=== PATIENT | female | born 1985 | race Caucasian/White ===

== ENCOUNTER → 2019-04-13 | Outpatient (CLI) | payer BC | END | disposition home or self-care (01) | LOC: LAB 12:30 | PROVIDERS: ATTEND Internal Medicine | DX: Z34.80 Encounter for supervision of other normal pregnancy, unspecified trimester (principal); Z3A.00 Weeks of gestation of pregnancy not specified | CPT/HCPCS: 36415; 81025; 84702 ==

== ENCOUNTER → 2019-06-23 | Outpatient (CLI) | payer BC ==
[2019-06-23 10:25] LABS: Basophils # (auto) 0.1 uL; Basophils % (auto) 0.9 % (0.0-2.0); Eosinophils # (auto) 0.6 uL; Hematocrit 39.7 % (36.0-46.0); Hemoglobin 13.4 g/dL (12.2-16.2); Lymphocytes # (auto) 1.6 uL; Lymphocytes % (auto) 20.7 % (10.0-50.0); Mean Corpuscular Hemoglobin 28.8 pg (28.0-32.0); Mean Corpuscular Hgb Conc. 33.7 g/dL (32.0-36.0); Mean Corpuscular Volume 85.4 fL (80.0-100.0); Monocytes # (auto) 0.6 uL; Monocytes % (auto) 7.6 % (0.0-12.0); Neutrophils # (auto) 4.8 uL; Neutrophils % (auto) 62.8 % (37.0-80.0); Platelet Count (auto) 200 10^3/uL (140-450); Red Blood Cells 4.65 10^6/uL (4.0-5.20); Red Cell Distribution Width 14.4 % (11.8-14.3); White Blood Cell 7.7 10^3/uL (4.4-10.8)
[2019-06-23 11:19] LABS: Alcohol, Urine < 3.0 mg/dL (0-5); Amphetamine Screen, Urine NEGATIVE (NEGATIVE); Barbiturate Scree,Urine NEGATIVE (NEGATIVE); Benzodiazephine Screen, Urine NEGATIVE (NEGATIVE); Cannabinoid Screen, Urine NEGATIVE (NEGATIVE); Cocaine Screen, Urine NEGATIVE (NEGATIVE); Opiate Scree,Urine NEGATIVE (NEGATIVE); Phencyclidine Screen, Urine NEGATIVE (NEGATIVE)
[2019-06-24 07:06] LABS: RPR Non Reactive (Non Reactive)
== END | disposition home or self-care (01) ==
LOC: LAB 09:09
PROVIDERS: ATTEND Obstetrics & Gynecology
DX: Z34.82 Encounter for supervision of other normal pregnancy, second trimester (principal); Z3A.19 19 weeks gestation of pregnancy
CPT/HCPCS: 36415; 80307; 84112; 85025; 86592; 86703; 86762; 86850; 86900; 86901; 87086; 87340

== ENCOUNTER → 2019-09-24 | Outpatient (CLI) | payer BC ==
[2019-09-24 07:36] LABS: Basophils # (auto) 0.1 uL; Basophils % (auto) 0.7 % (0.0-2.0); Eosinophils # (auto) 0.2 uL; Eosinophils % (auto) 3.2 % (0.0-7.0); Hematocrit 36.3 % (36.0-46.0); Hemoglobin 12.2 g/dL (12.2-16.2); Lymphocytes # (auto) 1.8 uL; Lymphocytes % (auto) 23.3 % (10.0-50.0); Mean Corpuscular Hemoglobin 28.7 pg (28.0-32.0); Mean Corpuscular Hgb Conc. 33.5 g/dL (32.0-36.0); Mean Corpuscular Volume 85.8 fL (80.0-100.0); Monocytes # (auto) 0.8 uL; Monocytes % (auto) 9.7 % (0.0-12.0); Neutrophils # (auto) 4.9 uL; Neutrophils % (auto) 63.1 % (37.0-80.0); Nucleated Red Blood Cells % 0.1 %; Platelet Count (auto) 181 10^3/uL (140-450); Red Blood Cells 4.23 10^6/uL (4.0-5.20); Red Cell Distribution Width 13.2 % (11.8-14.3); White Blood Cell 7.8 10^3/uL (4.4-10.8)
== END | disposition home or self-care (01) ==
LOC: LAB 07:21
PROVIDERS: ATTEND Obstetrics & Gynecology
DX: O99.810 Abnormal glucose complicating pregnancy (principal); Z3A.01 Less than 8 weeks gestation of pregnancy
CPT/HCPCS: 36415; 82951; 85025

== ENCOUNTER → 2019-10-13 | Outpatient (CLI) | payer BC ==
[2019-10-13 10:02] LABS: Basophils # (auto) 0 uL; Basophils % (auto) 0.6 % (0.0-2.0); Eosinophils # (auto) 0.1 uL; Eosinophils % (auto) 1.9 % (0.0-7.0); Hemoglobin 12.4 g/dL (12.2-16.2); Lymphocytes # (auto) 1.4 uL; Lymphocytes % (auto) 19.1 % (10.0-50.0); Mean Corpuscular Hemoglobin 29.6 pg (28.0-32.0); Mean Corpuscular Hgb Conc. 34.5 g/dL (32.0-36.0); Mean Corpuscular Volume 85.6 fL (80.0-100.0); Monocytes # (auto) 0.8 uL; Neutrophils # (auto) 5.2 uL; Neutrophils % (auto) 68.4 % (37.0-80.0); Nucleated Red Blood Cells % 0.1 %; Platelet Count (auto) 165 10^3/uL (140-450); Red Blood Cells 4.21 10^6/uL (4.0-5.20); Red Cell Distribution Width 13.2 % (11.8-14.3); White Blood Cell 7.6 10^3/uL (4.4-10.8)
[2019-10-14 09:06] LABS: RPR Non Reactive (Non Reactive)
== END | disposition home or self-care (01) ==
LOC: LAB 09:31
PROVIDERS: ATTEND Obstetrics & Gynecology
DX: Z34.83 Encounter for supervision of other normal pregnancy, third trimester (principal); Z3A.35 35 weeks gestation of pregnancy
CPT/HCPCS: 36415; 84112; 85025; 86592

== ENCOUNTER 2019-11-10 04:05 | Inpatient (IN) | payer BC ==
[2019-11-10] VITALS (14 sets, daily range): BP systolic 102–128; BP diastolic 52–81
[~2019-11-10] VITALS: Ht 167.6 cm; Wt 76.7 kg
[2019-11-10 05:26] LABS: Basophils # (auto) 0.1 10 ^3/uL (0-0.2); Basophils % (auto) 1.1 % (0.0-2.0); Eosinophils # (auto) 0.1 10 ^3/uL (0-0.8); Eosinophils % (auto) 1.6 % (0.0-7.0); Hematocrit 35.8 % (36.0-46.0); Hemoglobin 12.2 g/dL (12.2-16.2); Lymphocytes % (auto) 26.5 % (10.0-50.0); Mean Corpuscular Hemoglobin 28.7 pg (28.0-32.0); Mean Corpuscular Hgb Conc. 33.9 g/dL (32.0-36.0); Mean Corpuscular Volume 84.4 fL (80.0-100.0); Monocytes # (auto) 0.6 10 ^3/uL (0-1.3); Monocytes % (auto) 8.5 % (0.0-12.0); Neutrophils # (auto) 4.7 10 ^3/uL (1.6-8.6); Neutrophils % (auto) 62.3 % (37.0-80.0); Platelet Count (auto) 178 10^3/uL (140-450); Red Blood Cells 4.24 10^6/uL (4.0-5.20); Red Cell Distribution Width 13.2 % (11.8-14.3); White Blood Cell 7.5 10^3/uL (4.4-10.8)
[2019-11-10] MEDS: LACTATED RINGER'S 1,000 ML IV SCH ×4 (05:35→23:30)
[2019-11-10 05:41] LABS: INR 0.92 (0.9-1.15); Partial Thromboplastin Time 26.6 sec (23.64-32.05)
[2019-11-10 05:46] LABS: Albumin 2.7 g/dL (3.4-5.0); Calcium 8.6 mg/dL (8.5-10.1); Potassium 3.5 mmol/L (3.5-5.1)
[2019-11-10 05:46] LABS: Urine Bacteria NONE SEEN /hpf (None Seen); Urine Blood Negative /uL (Negative); Urine Mucus FEW (None Seen); Urine Specific Gravity 1.019 (1.001-1.035); Urine WBC 2 /hpf (0 - 5)
[2019-11-10] MEDS ORDERED: PREN-153 OR (05:47)
[2019-11-10 05:50] LABS: BUN/Creatinine Ratio 15.1; Bilirubin, Total 0.3 mg/dL (0.2-1.0); Total Protein 6.9 g/dL (6.4-8.2)
[2019-11-10] MEDS ORDERED: fentaNYL CITRATE 100 MCG/2 ML VL ONE (06:02)
[2019-11-10] MEDS ORDERED: oxyTOCIN 10 UNIT/ML 10ML VIAL ONE (06:02)
[2019-11-10] MEDS ORDERED: MORPHINE SULF(PF) 0.5MG/ML 10ML VIAL ONE (06:02)
[2019-11-10] MEDS ORDERED: ceFAZolin 1GM VL ONE (06:02)
[2019-11-10] MEDS ORDERED: BUPIVACAINE/DEXTROSE MPF 0.75% 2 ML AMP IT ONE (06:02)
[2019-11-10] MEDS ORDERED: ONDANSETRON HCL 4 MG/2 ML VIAL ONE (06:02)
[2019-11-10] MEDS ORDERED: SODIUM CHLORIDE LOCK 10 ML ONE (06:02)
[2019-11-10] MEDS ORDERED: MIDAZOLAM HCL 1MG/1ML-2 ML VIAL ONE (06:02)
[2019-11-10] MEDS ORDERED: EPINEPHrine HCL 1 MG/1 ML AMP ONE (06:03)
[2019-11-10] MEDS ORDERED: TETRACAINE 1% INJ 2 ML VIAL IJ ONE (06:48)
[2019-11-10] MEDS ORDERED: SUCCINYLCHOLINE CHLORIDE 20 MG/ML 10ML VIAL IV ONE (06:48)
[2019-11-10] MEDS ORDERED: LACT. RINGERS/OXYTOCIN 20UNITS 1,000 ML IV SCH (06:54)
[2019-11-10] MEDS ORDERED: MORPHINE SULFATE 4 MG/ML SYR/VIAL IV PRN (07:00)
[2019-11-10] MEDS ORDERED: ONDANSETRON HCL 4 MG/2 ML VIAL IV PRN (07:00)
[2019-11-10] MEDS ORDERED: ceFAZolin 1GM/50ML 50 ML IV SCH (07:00)
--- NOTE | 2019-11-10 08:40 | NUR ---
Call received from [facility]erson in PACU to give report: Pt stable and ready for transport back to [facility]; 425mL output from palmer, incision clean, dry intact; scant lochia; uterus firm 1 below umbilicus; pt received 30 of pit with bag still running; O2 sat 100% RA; 14R, 128/52BP; pt received duramorph; ancef given at 0725.
--- NOTE | 2019-11-10 08:45 | NUR ---
Post Op for [facility]: Received patient from PACU via bed to room 7B. Patient A/A/Ox4, abdominal binder and bilateral SCD's are in place, IV fluids placed on pump and infusing per order, incisional site dressing clean/dry/intact and Camp Catheter to gravity draining clear yellow urine. Incentive Spirometer at bedside and instruction on proper use with return demonstration done by patient.
--- NOTE | 2019-11-10 09:00 | NUR ---
Teaching: Reviewed information in [facility] [employer] booklet with patient. Discussed benefits of and risks associated with not . Discussed different positions, proper latch, feeding cues, and baby-led . Provided information of medication side effects related to . All questions and concerns addressed at this time. Patient verbalized understanding of information.
--- NOTE | 2019-11-10 12:15 | NUR ---
Pericare performed; ramone pad changed; pt tolerated well.
[2019-11-10] MEDS: ceFAZolin 1GM/50ML 50 ML IV SCH ×2 (15:07→23:04)
--- NOTE | 2019-11-10 16:15 | NUR ---
Pericare performed; ramone pad changed; pt tolerated well.
[2019-11-10 20:12] LABS: Basophils # (auto) 0 10 ^3/uL (0-0.2); Basophils % (auto) 0.4 % (0.0-2.0); Eosinophils # (auto) 0.1 10 ^3/uL (0-0.8); Eosinophils % (auto) 0.5 % (0.0-7.0); Hematocrit 33.7 % (36.0-46.0); Lymphocytes # (auto) 1.6 10 ^3/uL (0.4-5.4); Mean Corpuscular Hemoglobin 27.8 pg (28.0-32.0); Mean Corpuscular Hgb Conc. 32.6 g/dL (32.0-36.0); Mean Corpuscular Volume 85.2 fL (80.0-100.0); Monocytes # (auto) 0.8 10 ^3/uL (0-1.3); Monocytes % (auto) 6.9 % (0.0-12.0); Neutrophils # (auto) 8.9 10 ^3/uL (1.6-8.6); Neutrophils % (auto) 78.2 % (37.0-80.0); Platelet Count (auto) 153 10^3/uL (140-450); Red Blood Cells 3.95 10^6/uL (4.0-5.20); Red Cell Distribution Width 13.5 % (11.8-14.3); White Blood Cell 11.3 10^3/uL (4.4-10.8)
[2019-11-10] MEDS ORDERED: ACETAMINOPHEN IV 1000 MG/100ML (10MG/ML) IV ONE (20:30)
[2019-11-10] MEDS ORDERED: ACETAMINOPHEN IV 100 ML IV ONE (20:45)
--- NOTE | 2019-11-10 21:45 | NUR ---
Ambulation: Patient OOB with standby assistance by RN. Patient ambulated hallway with steady gait. Camp catheter remains in place draining to gravity. Pericare teaching provided with returned demonstration by patient. Clean gown provided and bed linen changed. Patient ambulated back to room and sits in chair. No distress noted.
[2019-11-11 03:12] VITALS: BP 117/61
[2019-11-11 06:50] LABS: Basophils # (auto) 0 10 ^3/uL (0-0.2); Basophils % (auto) 0.2 % (0.0-2.0); Eosinophils # (auto) 0 10 ^3/uL (0-0.8); Eosinophils % (auto) 0.3 % (0.0-7.0); Hematocrit 32.7 % (36.0-46.0); Hemoglobin 11.1 g/dL (12.2-16.2); Lymphocytes % (auto) 9.7 % (10.0-50.0); Mean Corpuscular Hemoglobin 29.1 pg (28.0-32.0); Mean Corpuscular Hgb Conc. 33.9 g/dL (32.0-36.0); Mean Corpuscular Volume 85.7 fL (80.0-100.0); Monocytes # (auto) 0.9 10 ^3/uL (0-1.3); Monocytes % (auto) 8.3 % (0.0-12.0); Neutrophils # (auto) 8.4 10 ^3/uL (1.6-8.6); Neutrophils % (auto) 81.5 % (37.0-80.0); Platelet Count (auto) 145 10^3/uL (140-450); Red Blood Cells 3.82 10^6/uL (4.0-5.20); Red Cell Distribution Width 13.3 % (11.8-14.3); White Blood Cell 10.3 10^3/uL (4.4-10.8)
[2019-11-11] MEDS: ceFAZolin 1GM/50ML 50 ML IV SCH (07:07)
[2019-11-11] MEDS ORDERED: LACTATED RINGER'S 1,000 ML IV SCH (07:12)
[2019-11-11] MEDS ORDERED: BISACODYL 10 MG RECT SUPP PR PRN (07:15)
[2019-11-11] MEDS ORDERED: HYDROcodone-ACET 5/325MG TAB PO PRN (07:15)
[2019-11-11 07:30] VITALS: BP 120/64
[2019-11-11 08:07] LABS: RPR Non Reactive (Non Reactive)
[2019-11-11] MEDS: HYDROcodone-ACET 5/325MG TAB PO PRN ×3 (08:09→20:51)
--- NOTE | 2019-11-11 09:00 | NUR ---
Pt up ambulating in hallway
[2019-11-11] MEDS: IBUPROFEN 800 MG TAB PO PRN ×2 (09:13→17:16)
[2019-11-11] MEDS: DOCUSATE SOD 100 MG CAP PO SCH ×2 (09:35→21:35)
[2019-11-11] MEDS ORDERED: ceFAZolin 1GM/50ML 50 ML IV ONE (10:25)
[2019-11-11 10:30] VITALS: BP 121/64
[2019-11-11] MEDS: SIMETHICONE 80 MG CHEWABLE TABLET PO SCH ×3 (12:03→21:35)
--- NOTE | 2019-11-11 13:00 | NUR ---
Pt up ambulating in hallway
[2019-11-11 15:30] VITALS: BP 127/88
[2019-11-11 19:00] VITALS: BP 115/67
[2019-11-11 23:00] VITALS: BP 109/65
[2019-11-12 03:14] VITALS: BP 111/65
[2019-11-12] MEDS: HYDROcodone-ACET 5/325MG TAB PO PRN (04:05)
[2019-11-12] MEDS: SIMETHICONE 80 MG CHEWABLE TABLET PO SCH ×4 (05:48→21:58)
--- NOTE | 2019-11-12 06:31 | NUR ---
Report received from Arline Jacobo RN on stable pt. Assumed care. Addendum: 11/12/19 at 1143 by Marlen Coles RN Amended: Links added.
[2019-11-12 06:50] VITALS: BP 118/58
--- NOTE | 2019-11-12 06:50 | NUR ---
Lower abdominal incision, open to air, well approximated with callie intact. No redness, bleeding, or drainage noted. Abdominal binder in place. Incentive spirometer at bedside. Pt educated on the use of IS and the importance of ambulation. Pt verbalizes understanding. Addendum: 11/12/19 at 1159 by Marlen Coles RN Amended: Links added.
[2019-11-12] MEDS: DOCUSATE SOD 100 MG CAP PO SCH ×2 (10:27→21:58)
[2019-11-12] MEDS: IBUPROFEN 800 MG TAB PO PRN ×2 (10:27→21:01)
[2019-11-12 10:53] VITALS: BP 117/57
[2019-11-12 15:15] VITALS: BP 112/66
--- NOTE | 2019-11-12 16:59 | NUR ---
Pt states that she was able to have a small bowel movement. BM not assessed by RN.
--- NOTE | 2019-11-12 18:20 | NUR ---
Report given to Arline Jacobo RN on stable pt. Relinquished care. Addendum: 11/12/19 at 1835 by Marlen Coles RN Amended: Links added.
[2019-11-12 18:32] VITALS: BP 116/66
[2019-11-12 23:22] VITALS: BP 115/65
[2019-11-13 03:00] VITALS: BP 121/69
[2019-11-13] MEDS: SIMETHICONE 80 MG CHEWABLE TABLET PO SCH (06:00)
[2019-11-13 07:20] VITALS: BP 113/79
--- NOTE | 2019-11-13 08:44 | NUR ---
IV removal 20 g IV to Left Forearm discontinued with clean sterile technique, catheter fully intact. Pressure dressing applied to site. Patient tolerated well.
--- NOTE | 2019-11-13 09:30 | NUR ---
C/S Staple Removal DC Note: Orders received to remove callie. Callie removed using sterile technique. Lower abdominal incision approximated, no drainage/redness/inflammation visualized at time of removal. Steri-strips applied. Education provided on incisional care. Patient verbalized understanding and willingness to comply to instructions/teaching provided.
[2019-11-13] MEDS: DOCUSATE SOD 100 MG CAP PO SCH (10:00)
[2019-11-13 11:00] VITALS: BP 119/74
--- NOTE | 2019-11-13 11:20 | NUR ---
Discharge: Discharge instructions given to mother of baby as ordered. Copies of and hearing screening, along with vaccination record given to mother. Mother encouraged to follow up with Auto Rental Supervisor of choice and to give envelope with infants information to act english tutor at 1st office visit. All questions and concerns addressed. Mother of baby verbalized understanding and agreed to comply. Mother of baby encouraged to prepare for departure and notify RN ready to leave room for ID band removal/verification and car seat check.
--- NOTE | 2019-11-13 11:20 | NUR ---
Discharge: Discharge instructions given as ordered. Pt encouraged to follow up with FOOD SERVICE SPECIALIST as instructed. All questions and concerns addressed. Patient verbalized understanding. Medication reconciliation completed and copy given to patient. All required/requested vaccines given and copies of vaccinations given to patient. Patient encouraged to prepare to depart unit.
== END 2019-11-13 11:50 | disposition home or self-care (01) | DRG 807 ==
LOC: LDRP 04:05
PROVIDERS: ADMIT Obstetrics & Gynecology; ATTEND Obstetrics & Gynecology
PROC: 10E0XZZ Delivery of Products of Conception, External Approach (ICD-10-PCS; principal; 2019-11-10 07:00)
DX: O34.211 Maternal care for low transverse scar from previous cesarean delivery (principal); Z37.0 Single live birth; Z3A.39 39 weeks gestation of pregnancy
CPT/HCPCS: 36415; 51702; 59025; 80053; 81001; 84112; 85025; 85610; 85730; 86592; 86850; 86900; 86901; 94760; 96365; 96366; G0378; J0131; J0171; J0330; J0690; J2250; J2405; J2590